=== PATIENT | female | born 1960 | race Two or more races ===

== ENCOUNTER 2025-05-05 12:15 | Inpatient (IN) | payer OTHER ==
[~2025-05-05] VITALS: Ht 165.1 cm; Wt 59.0 kg
[2025-05-05] MEDS ORDERED: NORVASC5 MG PO (16:07)
[2025-05-05] MEDS ORDERED: LOSARTAN POTAS100 MG PO (16:07)
[2025-05-05] MEDS ORDERED: TAPAZOLE5 MG PO (16:08)
[2025-05-05 16:09] VITALS: BP 154/78
[2025-05-05 16:13] VITALS: BP 159/83
[2025-05-19] MEDS ORDERED: LIDOCAINE HCL 1%/EPINEPHRINE 20ML VIAL IJ ONE (14:30)
[2025-05-19] MEDS ORDERED: BUPIVACAINE HCL 30 ML VIAL IJ ONE (14:30)
[2025-05-19] MEDS ORDERED: METRONIDAZOLE/SODIUM CHLORIDE 500 MG/100 ML PIGGYBACK IV ONE (14:30)
[2025-05-19] MEDS ORDERED: CEFTRIAXONE SODIUM 2,000 MG VIAL IV ONE (14:30)
[2025-05-19] MEDS ORDERED: MORPHINE SULFATE 4 MG/ML VIAL IV ONE ×3 (15:25→17:10)
[2025-05-19] MEDS ORDERED: ENALAPRILAT DIHYDRATE 1.25 MG/ML VIAL IV PRN (16:30)
[2025-05-19] MEDS ORDERED: OxyCODONE HCL 5 MG TABLET (ROXICODONE) PO PRN (17:00)
[2025-05-19] MEDS ORDERED: MORPHINE SULFATE 4 MG/ML CARTRIDGE IV PRN (17:00)
[2025-05-19] MEDS ORDERED: ONDANSETRON HCL 2 MG/ML VIAL IV PRN (17:00)
[2025-05-19] MEDS ORDERED: HYOSCYAMINE SULFATE 0.125 MG TAB.SUBL SL SCH (17:00)
[2025-05-19] MEDS ORDERED: DEXTROSE 50 % IN WATER 0.5 G/ML VIAL IV PRN (17:00)
[2025-05-19] MEDS ORDERED: POLYETHYLENE GLYCOL 3350 17 GM BLIST.PACK PO SCH (17:00)
[2025-05-19] MEDS ORDERED: GABAPENTIN 300 MG CAPSULE PO SCH (17:00)
[2025-05-19] MEDS ORDERED: RINGERS SOLUTION,LACTATED 1,000 ML IV SCH (17:00)
[2025-05-19 18:48] VITALS: BP 154/78; O2SAT 95
[2025-05-19] MEDS ORDERED: ACETAMINOPHEN 500 MG GEL..CAP PO SCH (20:00)
[2025-05-19] MEDS ORDERED: FAMOTIDINE/PF 20 MG/2 ML VIAL IV PUSH SCH (21:00)
[2025-05-20 02:09] VITALS: BP 153/64; O2SAT 97
[2025-05-20 06:49] LABS: BASO % 0.3 % (0.1-1.2); EOS # 0.11 (0.04-0.54); EOS % 0.9 % (0.7-7.0); LYMPH # 1.82 (1.18-3.74); LYMPH % 15.3 % (19.3-53.1); MEAN PLATELET VOLUME 11.00 fl (9.4-12.4); MONO # 0.73 (0.24-0.82); MONO % 6.2 % (4.7-12.5); NEUT # 9.12 (1.56-6.13); NEUT % 77.0 % (34.0-71.1); RED CELL DISTRIBUTION WIDTH 13.2 % (11.6-14.4)
[2025-05-20 07:34] LABS: BUN CREA RATIO 14.0 (7.0-25.0); CREATININE SERUM 0.66 mg/dL (0.55-1.02); GFR 89.6; GLUCOSE FASTING 95.0 mg/dL (65-100); OSMOLALITY SERUM 282.0 MOSM/KG (275-295)
[2025-05-20 08:00] VITALS: BP 129/72; O2SAT 95
[2025-05-20] MEDS ORDERED: CELECOXIB 200 MG CAPSULE PO PRN (08:30)
[2025-05-20] MEDS ORDERED: AMLODIPINE BESYLATE 5 MG TABLET PO SCH (09:00)
[2025-05-20] MEDS ORDERED: LOSARTAN POTASSIUM 100 MG TABLET PO SCH (09:00)
[2025-05-20] MEDS ORDERED: METHIMAZOLE 10 MG TABLET PO SCH (09:00)
[2025-05-20] MEDS ORDERED: ENOXAPARIN SODIUM 40 MG/0.4 ML SYRINGE SUBCUTANEO SCH (17:00)
[2025-05-20 17:28] VITALS: BP 114/64; O2SAT 99
[2025-05-21 01:28] VITALS: BP 131/69; O2SAT 93
[2025-05-21 08:00] VITALS: BP 160/77; O2SAT 94
[2025-05-21] MEDS ORDERED: ENOXAPARIN SODIUM 40 MG/0.4 ML SYRINGE SUBCUTANEO SCH (09:00)
[2025-05-21 18:11] VITALS: BP 110/76; O2SAT 95
[2025-05-22 02:14] VITALS: BP 113/69; O2SAT 96
[2025-05-22 07:00] VITALS: BP 143/80; O2SAT 94
[2025-05-22] MEDS ORDERED: MORPHINE SULFATE 4 MG/ML CARTRIDGE IV PRN (12:15)
[2025-05-22] MEDS ORDERED: OxyCODONE HCL 5 MG TABLET (ROXICODONE) PO PRN (12:15)
[2025-05-22 16:00] VITALS: BP 150/79; O2SAT 97
[2025-05-23 01:52] VITALS: BP 111/66; O2SAT 93
[2025-05-23 08:00] VITALS: BP 139/66; O2SAT 96
[2025-05-23 08:37] LABS: BASO % 0.9 % (0.1-1.2); EOS # 0.62 (0.04-0.54); EOS % 9.1 % (0.7-7.0); LYMPH # 1.61 (1.18-3.74); LYMPH % 23.5 % (19.3-53.1); MEAN PLATELET VOLUME 11.90 fl (9.4-12.4); MONO # 0.69 (0.24-0.82); MONO % 10.1 % (4.7-12.5); NEUT # 3.85 (1.56-6.13); NEUT % 56.1 % (34.0-71.1); RED CELL DISTRIBUTION WIDTH 13.4 % (11.6-14.4)
[2025-05-23] MEDS ORDERED: CELECOXIB 200 MG CAPSULE PO SCH (09:00)
[2025-05-23 09:15] LABS: BUN CREA RATIO 25.0 (7.0-25.0); CREATININE SERUM 0.57 mg/dL (0.55-1.02); GFR 106.12; GLUCOSE FASTING 90.0 mg/dL (65-100); OSMOLALITY SERUM 292.0 MOSM/KG (275-295)
[2025-05-23] MEDS ORDERED: MAGNESIUM HYDROXIDE 30 ML BLIST.PACK PO NR (13:45)
[2025-05-23 16:00] VITALS: BP 160/89; O2SAT 95
[2025-05-23] MEDS ORDERED: MAGNESIUM HYDROXIDE 30 ML BLIST.PACK PO STA (16:24)
[2025-05-24 00:40] VITALS: BP 119/70; O2SAT 97
[2025-05-24 10:02] VITALS: BP 152/91; O2SAT 95
[2025-05-24] MEDS ORDERED: INTESTINEX680 M1 PO (13:41)
== END 2025-05-24 14:33 | disposition home or self-care (01) | DRG 331 ==
LOC: SURH 05-19 07:00 → O/R 05-19 10:14 → SURH 05-19 12:00
PROVIDERS: ADMIT Surgery; ATTEND Surgery
PROC: 07BB4ZZ Excision of Mesenteric Lymphatic, Percutaneous Endoscopic Approach (ICD-10-PCS; 2025-05-19)
PROC: 0DTF4ZZ Resection of Right Large Intestine, Percutaneous Endoscopic Approach (ICD-10-PCS; principal; 2025-05-19 07:00)
DX: D12.0 Benign neoplasm of cecum (principal); D37.4 Neoplasm of uncertain behavior of colon; R59.0 Localized enlarged lymph nodes